=== PATIENT | male | born 1965 | race Caucasian/White ===

== ENCOUNTER 2019-12-31 10:58 | Outpatient (CLI) | payer MEDICARE, SELFPAY ==
[2019-12-31 11:36] LABS: Hemoglobin A1C 8.7 % (<5.7)
[2019-12-31 12:22] LABS: Alanine Aminotransferase 427 U/L (16-63); Albumin Level 4.1 g/dL (3.4-5.0); Alkaline Phosphatase 412 U/L (46-116); Anion Gap 16.7 mmol/L (7-16); Aspartate Amino Transferase 196 U/L (15-37); Blood Urea Nitrogen 16 mg/dL (7-18); CRP 0.4 mg/dL (0.0-0.9); Calcium 9.6 mg/dL (8.5-10.1); Carbon Dioxide 26 mmol/L (21-32); Chloride 99 mmol/L (98-108); Cholesterol 207 mg/dL (0-200); Estimated Glomerular Filt Rate > 60; Glucose 227 mg/dL (70-99); HDL Direct 53 mg/dL (40-60); LDL Cholesterol Calculated 99 mg/dL (<130); Osmolality Calculated 292 mOsm/kg (285-295); Potassium 4.7 mmol/L (3.5-5.1); Prostate Specific Antigen 0.7 ng/mL (< OR = 4.0); Sodium 137 mmol/L (136-145); Total Protein 7.8 g/dL (6.4-8.2); Triglycerides 275 mg/dL (0-150)
== END 2019-12-31 10:59 | disposition home or self-care (01) ==
LOC: CHSLAB 11:01
PROVIDERS: PCP Internal Medicine; Visit Provider Internal Medicine
DX: E78.5 Hyperlipidemia, unspecified (principal); E11.9 Type 2 diabetes mellitus without complications; R51 Headache; Z12.5 Encounter for screening for malignant neoplasm of prostate; Z00.00 Encounter for general adult medical examination without abnormal findings
CPT/HCPCS: 36415; 80053; 80061; 83036; 84153; 86140; G0103

== ENCOUNTER 2020-01-02 07:43 | Outpatient (CLI) | payer MEDICARE, SELFPAY ==
--- NOTE | ~2020-01-02 | US_ITS ---
EXAMINATION: US right upper quadrant DATE: 01/02/2020 08:35 INDICATION: Elevated liver enzymes. TECHNIQUE: Multiple grayscale and Doppler ultrasound images of the abdomen were obtained. COMPARISON: Ultrasound dated 01/24/[address] dated 01/23/2019 FINDINGS: The pancreatic head and body are normal in appearance. The pancreatic tail is not visualized. The vi sualized proximal inferior vena cava is normal. Liver has normal contour, with a smooth surface. Ther e is increased parenchymal echogenicity and coarsened echotexture consistent with hepatic steatosis w ith similar pattern of geographic wedge-shaped regions of focal sparing most prominent in the posteri or right hepatic lobe as also seen on prior CT. No liver lesion identified. No intrahepatic biliary duct dilation suspected. Portal venous flow was seen in the hepatopetal, normal direction and has nor mal Doppler waveform. Gallbladder is no longer visualized consistent with reported interval cholecys tectomy. Common bile duct measures 4-5 mm in diameter which is normal. Visual is portions of the righ t kidney demonstrates normal echogenicity and contour with no hydronephrosis. IMPRESSION: 1. Heterogeneous pattern of hepatic steatosis as also seen on prior CT. 2. Status post cholecystectomy. No intra or extrahepatic biliary ductal dilation. Reviewed, dictated and finalized at location A. NER OPERATOR IMPRESSION: 1. Heterogeneous pattern of hepatic steatosis as also seen on prior CT. 2. Status post cholecystectomy. No intra or extrahepatic biliary ductal dilatio n.
[2020-01-02 08:56] LABS: Ferritin 441 ng/mL (26-388)
[2020-01-08 13:42] LABS: Ceruloplasmin 38 mg/dL (18-36)
== END 2020-01-02 07:44 | disposition home or self-care (01) ==
LOC: CHSIMG 07:44
PROVIDERS: PCP Internal Medicine; Visit Provider Internal Medicine
DX: R74.8 Abnormal levels of other serum enzymes (principal); E83.01 Wilson's disease
CPT/HCPCS: 36415; 76705; 82390; 82525; 82728; 83516; 86038; 86255; 86376

== ENCOUNTER 2020-04-06 01:41 | Emergency (ER) | payer MEDICARE, SELFPAY ==
--- NOTE | 2020-04-06 01:48 | ED.ABDPAIN ---
HPI - Abdominal Pain General Chief Complaint: Abdominal Pain Stated Complaint: Abdominal Pain Time Seen by Provider: 04/06/20 01:48 Source: patient Mode of arrival: ambulatory Limitations: no limitations Related Data Home Medications Medication Instructions Recorded Confirmed metformin 1,000 mg PO BID 11/16/19 04/06/20 metoprolol succinate 50 mg PO DAILY 11/16/19 04/06/20 Allergies Allergy/AdvReac Type Severity Reaction Status Date / Time No Known Allergies Allergy Unverified 01/25/19 13:54 [facility] Past Medical History Medical History Avascular necrosis of bone of hip Chronic low back pain DM type 2 with diabetic peripheral neuropathy DMII (diabetes mellitus, type 2) HLD (hyperlipidemia) HTN (hypertension) Surgical History Surgical History H/O hernia repair History of cholecystectomy Family History Family History (Updated 04/10/18 @ 10:20 by DOCTOR UNKNOWN) Other Diabetes mellitus Family history of arthritis Social History Social History Smoking status: Current every day smoker Alcohol intake: never Exam Const: General: alert Orientation/consciousness: patient oriented x3 Limitations: no limitations Other: Mild-mod acute distress HENMT: Head: normal to inspection Ears: external ears normal, TM's normal bilaterally and EAC's normal Mouth: Yes Normal oral and palatal mucosa present and Yes moist mucous membranes Throat: posterior oropharynx normal Eyes: Conjunctivae: conjunctivae normal Pupils: Equal, round and reactive pupils present EOM: EOMs intact bilaterally Resp: Effort & Inspection: normal respiratory effort and not labored Auscultation: clear to auscultation bilaterally, no rales, no rhonchi and no wheezes Cardio: Rate: regular rate Rhythm: regular rhythm Heart sounds: no murmurs GI: Inspection: non-distended GI Palp: Yes Soft to palpation, Yes Tenderness to palpation present (GI) (epigastric tenderness without guarding or rebound), No Rigid due to palpation and No Palpable mass present Skin: General skin exam: normal color, no jaundice and no pallor Rashes: no rashes Neuro: General: patient oriented x3, moves all extremities, no focal motor deficits and CN's II-XI intact bilaterally Speech: normal speech Extrem: General: normal to inspection and no clubbing, cyanosis or edema Psych: Appearance: grossly normal and well kempt Mental Status: mental status grossly normal Affect: normal affect Attitude: cooperative Thought content: Yes Normal thought content present Discharge Plan Discharge Clinical Impression: Abdominal pain, epigastric, Biliary obstruction Patient Disposition: Home, Self-Care Condition: Stable Instructions: Biliary Colic (ED), Abdominal Pain (ED) Additional Instructions: Follow-up with Dr. Perez in the next day or 2. If you have fever, vomiting, jaundice, or new concerning symptoms, be seen immediately. Prescriptions: New hydrocodone-acetaminophen [[place]] 5-325 mg tablet 1 tablet PO Q6H PRN (Reason: pain) Qty: 12 RF: 0 ondansetron 4 mg tablet,disintegrating 4 mg PO Q6H PRN (Reason: nausea and vomiting) Qty: 10 RF: 0 No Action metformin 500 mg tablet 1,000 mg PO BID RF: 0 metoprolol succinate 50 mg tablet extended release 24 hr 50 mg PO DAILY RF: 0 Follow-up/Referrals: Hira Perez MD [Primary Care Provider] - Time of Disposition: 04:31
[2020-04-06 01:53] VITALS: BP 168/96; PULSE 85; RESP 18; TEMP 36.1; O2SAT 99
[2020-04-06 02:13] LABS: Basophils Absolute Auto 0.01 K/mm3 (0.00-0.10); Basophils Percent Auto 0.1 % (0.0-1.0); Eosinophils Absolute Auto 0.12 K/mm3 (0.02-0.50); Eosinophils Percent Auto 1.5 % (1.0-6.0); Hematocrit 45.1 % (40.0-54.0); Immature Granulocyte Absolute 0.03 K/mm3 (0.00-0.00); Immature Granulocyte Percent A 0.4 % (0.0-0.0); Mean Corpuscular HGB Conc 33.3 g/dL (32.0-36.0); Mean Corpuscular Hemoglobin 29.8 pg (27.0-31.0); Mean Corpuscular Volume 89.5 fL (78.0-102.0); Mean Platelet Volume 10.3 fl (8.7-11.0); Monocytes Absolute Auto 0.66 K/mm3 (0.10-0.90); Monocytes Percent Auto 8.2 % (2.0-11.0); Neutrophils Absolute Auto 5.2 K/mm3 (1.7-7.2); Neutrophils Percent Auto 63.8 % (50.0-70.0); Platelet Count Result 290 K/mm3 (150-420); Red Blood Count 5.04 M/mm3 (4.70-6.10); Red Cell Distribution Width 13.2 % (11.6-14.4); White Blood Count 8.1 K/mm3 (4.8-10.8)
[2020-04-06] MEDS: ONDANSETRON INJ 4 MG/2 ML VIAL IV PUSH (02:27)
[2020-04-06] MEDS: HYDROMORPHONE HCL 2 MG/ML VIAL 0.5 MG IV PUSH (02:27)
[2020-04-06] MEDS: SODIUM CHLORIDE 0.9% IV 1,000 ML 999 ML IV CONT (02:28)
[2020-04-06 02:29] LABS: Alanine Aminotransferase 266 U/L (16-63); Albumin Level 3.1 g/dL (3.4-5.0); Alkaline Phosphatase 535 U/L (46-116); Anion Gap 17.3 mmol/L (7-16); Aspartate Amino Transferase 181 U/L (15-37); Blood Urea Nitrogen 11 mg/dL (7-18); Calcium 9.7 mg/dL (8.5-10.1); Carbon Dioxide 24 mmol/L (21-32); Chloride 100 mmol/L (98-108); Estimated CRCL calculation 79 ml/min; Estimated Glomerular Filt Rate > 60; Glucose 183 mg/dL (70-99); Lipase 200 U/L (73-393); Osmolality Calculated 290 mOsm/kg (285-295); Partial Thromboplastin Time 27.3 SEC (22.3-31.6); Potassium 3.3 mmol/L (3.5-5.1); Sodium 138 mmol/L (136-145); Total Protein 7.7 g/dL (6.4-8.2)
[2020-04-06 02:31] LABS: Lactic Acid Reflex 1.9 mmol/L (0.4-2.0)
[2020-04-06 02:44] LABS: GGT > 690.0 U/L (15-85)
[2020-04-06 03:07] LABS: Add Urine Microscopic? YES; Appearance Urine Clear (Clear); Bilirubin Urine Negative (Negative); Blood Urine Negative (Negative); Color Urine Yellow (Yellow); Glucose Urine UA 2+ (Negative); Ketones Urine Negative (Negative); Leukocyte Esterase Ur Negative LEU/UL (Negative); Nitrate Urine Negative (Negative); Protein Urine Negative (Negative); Specific Grav Ur <= 1.005 (1.010-1.020)
[2020-04-06 03:13] LABS: RBC Urine None seen /hpf (0-2); Squamous Epithelial Cell Urine None seen /hpf (Few); WBC Urine None seen /hpf (0-3)
[2020-04-06 03:14] LABS: Bacteria Urine None seen /hpf; Mucus Urine None seen /lpf
[2020-04-06] MEDS: POTASSIUM CHLORIDE 20 MEQ PACKET (FOR LIQUID) 40 MEQ PO (04:19)
[2020-04-06 04:46] VITALS: BP 158/90; PULSE 85; RESP 18; TEMP 36.4; O2SAT 100
== END 2020-04-06 04:49 | disposition home or self-care (01) ==
PROVIDERS: Emergency Provider Emergency Medicine; PCP Internal Medicine
DX: R10.13 Epigastric pain (principal); K83.1 Obstruction of bile duct; E11.42 Type 2 diabetes mellitus with diabetic polyneuropathy; E78.5 Hyperlipidemia, unspecified; I10 Essential (primary) hypertension; F17.200 Nicotine dependence, unspecified, uncomplicated
CPT/HCPCS: 36415; 80053; 81001; 82977; 83605; 83690; 85025; 85610; 85730; 96361; 96374; 96375; 99283; 99284; A9270; J1170; J2405; J7030

== ENCOUNTER 2020-04-14 12:00 | Outpatient (CLI) | payer MEDICARE, SELFPAY ==
[2020-04-14 12:10] LABS: Basophils Absolute Auto 0.04 K/mm3 (0.00-0.10); Basophils Percent Auto 0.5 % (0.0-1.0); Eosinophils Absolute Auto 0.14 K/mm3 (0.02-0.50); Eosinophils Percent Auto 1.7 % (1.0-6.0); Hematocrit 47.9 % (40.0-54.0); Immature Granulocyte Absolute 0.03 K/mm3 (0.00-0.00); Immature Granulocyte Percent A 0.4 % (0.0-0.0); Lymphocytes Absolute Auto 2.75 K/mm3 (1.10-4.50); Lymphocytes Percent Auto 34.2 % (18.0-42.0); Mean Corpuscular HGB Conc 33.4 g/dL (32.0-36.0); Mean Corpuscular Volume 89.9 fL (78.0-102.0); Mean Platelet Volume 10.2 fl (8.7-11.0); Monocytes Absolute Auto 0.49 K/mm3 (0.10-0.90); Monocytes Percent Auto 6.1 % (2.0-11.0); Neutrophils Absolute Auto 4.6 K/mm3 (1.7-7.2); Neutrophils Percent Auto 57.1 % (50.0-70.0); Platelet Count Result 335 K/mm3 (150-420); Red Blood Count 5.33 M/mm3 (4.70-6.10); Red Cell Distribution Width 12.7 % (11.6-14.4); White Blood Count 8.1 K/mm3 (4.8-10.8)
[2020-04-14 13:19] LABS: Alanine Aminotransferase 97 U/L (16-63); Albumin Level 3.8 g/dL (3.4-5.0); Alkaline Phosphatase 334 U/L (46-116); Amylase 46 U/L (25-115); Anion Gap 15.1 mmol/L (7-16); Aspartate Amino Transferase 31 U/L (15-37); Bilirubin,Total 0.4 mg/dL (0.00-1.00); Blood Urea Nitrogen 13 mg/dL (7-18); Calcium 9.9 mg/dL (8.5-10.1); Carbon Dioxide 27 mmol/L (21-32); Chloride 96 mmol/L (98-108); Estimated Glomerular Filt Rate > 60; Glucose 256 mg/dL (70-99); Lipase 233 U/L (73-393); Osmolality Calculated 287 mOsm/kg (285-295); Potassium 4.1 mmol/L (3.5-5.1); Sodium 134 mmol/L (136-145); Total Protein 7.9 g/dL (6.4-8.2)
[2020-04-19 05:17] LABS: CA 19-9 58 U/mL (<34)
== END 2020-04-14 12:01 | disposition home or self-care (01) ==
LOC: CHSLAB 12:02
PROVIDERS: PCP Internal Medicine; Visit Provider Internal Medicine
DX: R10.9 Unspecified abdominal pain (principal); C24.1 Malignant neoplasm of ampulla of Vater
CPT/HCPCS: 36415; 80053; 82150; 83690; 85025; 86301

== ENCOUNTER 2020-04-17 10:41 | Outpatient (CLI) | payer MEDICARE, SELFPAY ==
--- NOTE | 2020-04-17 11:00 | ECG_ITS ---
Measurements Intervals Jean Rate: 82 P: 73 SC: 138 QRS: 40 QRSD: 90 T: 58 QT: 367 QTc: 431 Interpretive Statements SINUS RHYTHM NONSPECIFIC T-WAVE ABNORMALITY- ANTERIOR LEADS BORDERLINE ECG Electronically Signed On 04-17-2020 13:35:12 CDT by Johnathan Culver D.O.
== END 2020-04-17 10:42 | disposition home or self-care (01) ==
LOC: CHSCARD 10:45
PROVIDERS: PCP Internal Medicine
DX: C24.1 Malignant neoplasm of ampulla of Vater (principal); E78.5 Hyperlipidemia, unspecified; I10 Essential (primary) hypertension
CPT/HCPCS: 93005

== ENCOUNTER 2020-05-27 20:42 | Emergency (ER) | payer MEDICARE, SELFPAY ==
--- NOTE | ~2020-05-27 | CT_ITS ---
EXAMINATION: CT abdomen pelvis w con DATE: 05/27/2020 22:34 INDICATION: Elevated with blood cell count. Status post Whipple procedure. TECHNIQUE: Computed tomography (CT) of the abdomen and pelvis was performed with 100 cc Omnipaque 350 intravenous contrast. The dose-length product was 213.88 mGy-cm. Automated exposure control and iter ative reconstruction technique were employed. COMPARISON: CT dated 01/23/2019. FINDINGS: Lung bases are unremarkable. Heart size normal. No significant pleural or pericardial effus ion. Fatty infiltration of the liver. There are surgical changes of previous Whipple procedure. There are multiple loculated fluid collections along the lesser curvature of the stomach, near the pancreatic h ead and the anterior pararenal space on the right, suspicious for abscess versus pseudocyst formation . No evidence for bowel obstruction. There is stranding surrounding the pancreatic body, suspicious f or pancreatitis. The spleen, adrenal glands and kidneys are unremarkable. No acute osseous abnormality. Levoscoliosis of the lumbar spine. No significant vascular abnormality. No lymphadenopathy. No free air. No abnorma l pelvic masses or fluid collections. IMPRESSION: 1. Abnormal stranding surrounding the pancreatic body, suspicious for acute pancreatitis. There are s urgical changes consistent with Whipple procedure. 2: Multiple loculated fluid collections of the upper abdomen involving the lesser curvature of the s tomach near the pancreatic head and anterior pararenal space on the right, suspicious for abscess bailey nan pseudocyst formation. Reviewed, dictated and finalized at location A. IMPRESSION: 1. Abnormal stranding surrounding the pancreatic body, suspicious for acute hodge creatitis. There are surgical changes consistent with Whipple procedure. 2: Multiple loculated fluid collections of the upper abdomen involving the les ser curvature of the stomach near the pancreatic head and anterior pararenal sp agueda on the right, suspicious for abscess versus pseudocyst formation.
[2020-05-27 20:45] VITALS: BP 120/77; PULSE 116; RESP 16; TEMP 37.3; O2SAT 98
--- NOTE | 2020-05-27 20:57 | ED.GENADULT ---
HPI - General Adult General Chief complaint: Abdominal Pain Stated complaint: weak, dehydrated, stomach cramps,chills Time Seen by Provider: 05/27/20 20:57 History of Present Illness HPI narrative: 54-year-old male patient is here with chief complaints of feeling weak and having stomach cramps. 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 The surgery was done on 11 of May. The patient has been recovering reasonably well. He did have an appointment with oncologist and surgeon yesterday for further treatment with chemo and port placement. The patient states that he has not been very hungry and has not had much to eat. He denies any nausea or vomiting. He states that the cramps are intermittent and localized to the belly area. He has not had a bowel movement today but has been able to pass gas. He does not complain of feeling bloated. He is not complaining of any fever or chills. He denies any shortness of breath. Related Data Home Medications Medication Instructions Recorded Confirmed metformin 1,000 mg PO BID 11/16/19 05/27/20 metoprolol succinate 50 mg PO DAILY 11/16/19 05/27/20 docusate sodium 100 mg PO BID 05/27/20 05/27/20 lisinopril 20 mg PO DAILY 05/27/20 05/27/20 oxycodone 5 mg PO Q4-5H 05/27/20 05/27/20 Allergies Allergy/AdvReac Type Severity Reaction Status Date / Time No Known Allergies Allergy Verified 05/27/20 21:00 Review of Systems Review of Systems: All systems reviewed & are unremarkable except as noted in HPI and below Constitutional: Constitutional: Reports no additional constitutional complaints Eyes: Eyes: Reports no additional eye complaints ENT: Reports system reviewed and no additional complaints, except as documented Respiratory: Respiratory: Reports no additional respiratory complaints, Denies cough, Denies dyspnea and Denies wheezing Gastrointestinal: Gastrointestinal: Reports abdominal pain, Reports constipation, Denies diarrhea, Denies nausea and Denies vomiting Musculoskeletal: Musculoskeletal: Reports no additional musculoskeletal complaints Comments: Patient states that the abdominal discomfort is mostly like cramping but he does not have a persistent ache except from the surgical scar. Integumentary/Breasts: Skin/Breast: Reports system reviewed and no additional complaints, except as docu, Denies pruritus, Denies erythema and Denies rash Neurologic: Reports system reviewed and no additional complaints, except as documented Psychiatric: Psychiatric: Reports no additional psychiatric complaints Endocrine: Endocrine: Reports no additional endocrine complaints Hematologic/Lymphatic: Hematologic/Lymphatic: Reports no additional hematologic/lymphatic complaints PMFSH Past Medical History Medical History (Updated 05/27/20 @ 23:51 by Sanjuanita Chua MD) Avascular necrosis of bone of hip Cancer of ampulla of Vater Chronic low back pain DM type 2 with diabetic peripheral neuropathy DMII (diabetes mellitus, type 2) HLD (hyperlipidemia) HTN (hypertension) Surgical History Surgical History H/O hernia repair History of cholecystectomy Family History Family History Other Diabetes mellitus Family history of arthritis Social History Social History Smoking status: Current every day smoker Alcohol intake: never Exam Const: General: no acute distress, alert and ill appearing Nutritional Appearance: thin Orientation/consciousness: patient oriented x3 HENMT: Head: normal to inspection Mouth: Yes moist mucous membranes and Yes Abnormal oral and palatal mucosa present Eyes: Conjunctivae: conjunctivae normal Pupils: Equal, round and reactive pupils present EOM: EOMs intact bilaterally Neck: Neck: normal visual inspection Chest: Chest palpation & inspection: normal inspec
[2020-05-27 21:18] LABS: Basophils Absolute Auto 0.04 K/mm3 (0.00-0.10); Basophils Percent Auto 0.2 % (0.0-1.0); Eosinophils Absolute Auto 0.08 K/mm3 (0.02-0.50); Eosinophils Percent Auto 0.5 % (1.0-6.0); Hematocrit 40.5 % (40.0-54.0); Hemoglobin 13.6 g/dL (14.0-18.0); Immature Granulocyte Absolute 0.11 K/mm3 (0.00-0.00); Immature Granulocyte Percent A 0.6 % (0.0-0.0); Lymphocytes Absolute Auto 2.69 K/mm3 (1.10-4.50); Lymphocytes Percent Auto 15.8 % (18.0-42.0); Mean Corpuscular HGB Conc 33.6 g/dL (32.0-36.0); Mean Corpuscular Volume 86.4 fL (78.0-102.0); Mean Platelet Volume 9.5 fl (8.7-11.0); Monocytes Absolute Auto 1.42 K/mm3 (0.10-0.90); Monocytes Percent Auto 8.4 % (2.0-11.0); Neutrophils Absolute Auto 12.6 K/mm3 (1.7-7.2); Neutrophils Percent Auto 74.5 % (50.0-70.0); Nucleated Red Blood Cells Absolute Auto 0.02 K/mm3 (0.00-0.00); Nucleated Red Blood Cells Perc 0.1 % (0-0.0); Platelet Count Result 568 K/mm3 (150-420); Red Blood Count 4.69 M/mm3 (4.70-6.10); Red Cell Distribution Width 12.1 % (11.6-14.4)
[2020-05-27] MEDS: SODIUM CHLORIDE 0.9% IV 1,000 ML 999 ML IV CONT ×2 (21:28→22:52)
[2020-05-27 21:33] LABS: Alanine Aminotransferase 32 U/L (16-63); Albumin Level 2.9 g/dL (3.4-5.0); Alkaline Phosphatase 168 U/L (46-116); Anion Gap 12.2 mmol/L (7-16); Aspartate Amino Transferase 24 U/L (15-37); Bilirubin,Total 0.5 mg/dL (0.00-1.00); Blood Urea Nitrogen 14 mg/dL (7-18); Calcium 9.5 mg/dL (8.5-10.1); Carbon Dioxide 28 mmol/L (21-32); Chloride 94 mmol/L (98-108); Estimated Glomerular Filt Rate > 60; Glucose 171 mg/dL (70-99); Osmolality Calculated 274 mOsm/kg (285-295); Potassium 4.2 mmol/L (3.5-5.1); Sodium 130 mmol/L (136-145); Total Protein 7.5 g/dL (6.4-8.2)
[2020-05-27 21:39] LABS: Amylase 18 U/L (25-115); Lipase 54 U/L (73-393)
[2020-05-27] MEDS: MORPHINE SULFATE 2 MG/ML INJ IV PUSH ×3 (21:49→23:13)
[2020-05-27 22:08] LABS: Magnesium 1.7 mg/dL (1.8-2.4)
[2020-05-27] MEDS: ONDANSETRON INJ 4 MG/2 ML VIAL IV PUSH (22:52)
--- NOTE | 2020-05-27 23:16 | PC.NURSE ---
JAKE CEBALLOS PUT A PAGE OUT TO SURGEON DR. MENJIVAR OUT OF [facility] IN [place], [place] THROUGH [employer] TRANSF[facility] FOR A SURGICAL PATIENT OF HIS WHO IS PRESENTING WITH AN ABNORMAL CT SCAN OF THE ABDOMEN AND PAIN AFTER A WHIPPLE PROCEDURE PERFORMED LAST WEEK. DR. MENJIVAR IS TO CALL ED DR HOWARD BACK AT [facility] SOON POSSIBLE.
--- NOTE | 2020-05-27 23:34 | PC.NURSE ---
Report received, pt. resting. VSS, call abck from Dr. Troncoso, surgeon at [facility], speaking c ERP Dr. Nieves.
[2020-05-27] MEDS: HYDROmorphone HCL 2 MG/ML VIAL IV PUSH (23:50)
[2020-05-27] MEDS: MAGNESIUM SULF 2 GM/WATER 50ML 2 GM/50 ML BAG IVPB (23:53)
[2020-05-28 00:45] VITALS: BP 120/71; PULSE 78; RESP 18; TEMP 36.4; O2SAT 98
== END 2020-05-28 00:51 | disposition home or self-care (01) ==
PROVIDERS: Emergency Provider Emergency Medicine; PCP Internal Medicine
DX: R10.9 Unspecified abdominal pain (principal); E83.42 Hypomagnesemia; E86.0 Dehydration; E11.9 Type 2 diabetes mellitus without complications; E78.5 Hyperlipidemia, unspecified; I10 Essential (primary) hypertension; F17.200 Nicotine dependence, unspecified, uncomplicated
CPT/HCPCS: 36415; 74177; 80053; 82150; 83690; 83735; 85025; 96361; 96365; 96375; 96376; 99283; 99284; J1170; J2270; J2405; J3475; J7030; Q9965

== ENCOUNTER 2020-06-11 07:37 | Emergency (ER) | payer MEDICARE, SELFPAY ==
--- NOTE | ~2020-06-11 | XR_ITS ---
EXAMINATION: XR abdomen obstructive series DATE: 06/11/2020 08:20 INDICATION: Generalized abdominal pain. Nausea. Constipation. TECHNIQUE: Upright and supine views of the abdomen on 3 radiographs were obtained. COMPARISON: CT abdomen and pelvis 05/27/2020 FINDINGS: There are no dilated loops of bowel. There is a large volume of stool in the colon. No free intraperitoneal gas. Surgical clips in the right upper quadrant are likely from cholecystectomy. The re are phleboliths in the pelvis. IMPRESSION: 1. Nonobstructive bowel gas pattern. Reviewed, dictated and finalized at location B.
[2020-06-11 07:50] VITALS: BP 145/88; PULSE 123; RESP 20; TEMP 37.2; O2SAT 98
[2020-06-11] MEDS: KETOROLAC (*BKC) 60 MG/2 ML VIAL IM (08:09)
--- NOTE | 2020-06-11 08:27 | PC.NURSE ---
pt to room 203 for enema per wheelchair with this senior copywriter
--- NOTE | 2020-06-11 08:32 | ED.ABDPAIN ---
HPI - Abdominal Pain General Chief Complaint: Abdominal Pain Stated Complaint: PAIN NO BOWEL MOVEMENTS Source: patient Mode of arrival: ambulatory Limitations: no limitations History of Present Illness HPI narrative: This is a 55-year-old male with a history of pancreatic mass recent Whipple's procedure and has been having constipation and crampy abdominal pain over the last week. Last bowel movement approximately 1 week ago is currently on narcotics to relieve his pain and on Mylanta and does his state for a constipation with currently no help. Patient has crampy abdominal pain diffuse with some no nausea vomiting no fever chills no shortness of breath no chest pain. MD elicited complaint: abdominal pain Pertinent past history: constipation Onset (ago): week(s) Pain Consistency: constant Location: diffuse Severity: moderate Quality: cramping Radiation: none Exacerbating factors: medication Relieving factors: nothing Related Data Home Medications Medication Instructions Recorded Confirmed metformin 1,000 mg PO BID 11/16/19 05/27/20 metoprolol succinate 50 mg PO DAILY 11/16/19 05/27/20 docusate sodium 100 mg PO BID 05/27/20 05/27/20 lisinopril 20 mg PO DAILY 05/27/20 05/27/20 oxycodone 5 mg PO Q4-5H 05/27/20 05/27/20 Allergies Allergy/AdvReac Type Severity Reaction Status Date / Time No Known Allergies Allergy Verified 05/27/20 21:00 Review of Systems Review of Systems: All systems reviewed & are unremarkable except as noted in HPI and below PMFSH Past Medical History Medical History Avascular necrosis of bone of hip Cancer of ampulla of Vater Chronic low back pain DM type 2 with diabetic peripheral neuropathy DMII (diabetes mellitus, type 2) HLD (hyperlipidemia) HTN (hypertension) Surgical History Surgical History H/O hernia repair History of cholecystectomy Family History Family History Other Diabetes mellitus Family history of arthritis Social History Social History Smoking status: Current every day smoker Alcohol intake: never Exam Const: General: no acute distress HENMT: Head: normal to inspection Eyes: Conjunctivae: conjunctivae normal Pupils: Equal, round and reactive pupils present EOM: EOMs intact bilaterally Neck: Neck: normal visual inspection, no lymphadenopathy and no meningeal signs Chest: Chest palpation & inspection: normal inspection of the chest and abnormal inspection of the chest Resp: Effort & Inspection: normal respiratory effort Auscultation: clear to auscultation bilaterally Cardio: Rate: regular rate Rhythm: regular rhythm GI: GI Palp: Yes Soft to palpation and Yes Tenderness to palpation present (GI) Auscultation: normal bowel sounds : Testes: Testes normal Skin: General skin exam: normal color Rashes: no rashes Neuro: General: patient oriented x3, moves all extremities, no meningeal signs and no focal motor deficits Extrem: General: normal to inspection and no pedal edema Psych: Mental Status: mental status grossly normal Affect: normal affect Thought content: Yes Normal thought content present Course Course Emergency Course: Patient had obstructive series which shows no obstruction, patient received IM Toradol with some moderate relief of his abdominal pain, patient was also administered soapsuds enema with some relief of his discomfort with constipation. Vital Signs Vital signs: Vital Signs Temperature 37.2 C 06/11/20 07:50 Pulse Rate 123 H 06/11/20 07:50 Respiratory Rate 20 06/11/20 07:50 Blood Pressure 145/88 H 06/11/20 07:50 Pulse Oximetry 98 06/11/20 07:50 Temperature 37.2 C 06/11/20 07:50 Pulse Rate 123 H 06/11/20 07:50 Respiratory Rate 20 06/11/20 07:50 Blood Pressure 145/8
== END 2020-06-11 09:07 | disposition home or self-care (01) ==
PROVIDERS: Emergency Provider Emergency Medicine; PCP Internal Medicine
DX: K59.00 Constipation, unspecified (principal)
CPT/HCPCS: 74019; 96372; 99283; J1885

== ENCOUNTER 2020-07-18 07:24 | Outpatient (CLI) | payer MEDICARE, SELFPAY ==
--- NOTE | ~2020-07-18 | MR_ITS ---
EXAMINATION: MR lumbar spine wo/w con DATE: 07/18/2020 08:48 INDICATION: Low back pain. TECHNIQUE: Magnetic resonance imaging (MRI) of the lumbar spine was performed without and with 10 mL MultiHance intravenous contrast. Sequences included sagittal T2-weighted FSE, sagittal T2-weighted FS FSE, and sagittal and axial T1-weighted FSE. Postcontrast sequences included axial T2-weighted FSE a nd axial and sagittal T1-weighted FS FSE. COMPARISON: None FINDINGS: There is 11 degrees levoscoliosis of lumbar spine. L5 is a transitional segment. Vertebral body heights are normal. There is mildly decreased disc height at L4-L5. The distal spinal cord signa l intensity is normal. The conus medullaris is at T12. The following disc levels are specifically dis cussed: L1-L2: The disc does not extend beyond the endplate margin. There is mild bilateral facet joint osteo arthritis. There is no neural foraminal stenosis. There is no central canal stenosis. L2-L3: The disc does not extend beyond the endplate margin. There is mild bilateral facet joint osteo arthritis. There is no neural foraminal stenosis. There is no central canal stenosis. L3-L4: There is a right foraminal protrusion. There is mild bilateral facet joint osteoarthritis. The re is mild right neural foraminal stenosis. There is no central canal stenosis. L4-L5: The disc is bulging and has an annular fissure. There is mild bilateral facet joint osteoarthr itis. There is mild bilateral neural foraminal stenosis. There is mild central canal stenosis. L5-S1: The disc does not extend beyond the endplate margin. There is mild bilateral facet joint osteo arthritis. There is no neural foraminal stenosis. There is no central canal stenosis. IMPRESSION: 1. Mild lumbar spondylosis. 2. Lumbar levoscoliosis. Reviewed, dictated and finalized at location A.
[2020-07-18 07:50] LABS: Estimated Glomerular Filt Rate > 60
== END 2020-07-18 07:25 | disposition home or self-care (01) ==
LOC: CHSIMG 07:26
PROVIDERS: PCP Internal Medicine; Visit Provider Internal Medicine
DX: M54.9 Dorsalgia, unspecified (principal); M54.16 Radiculopathy, lumbar region; C25.9 Malignant neoplasm of pancreas, unspecified
CPT/HCPCS: 72158; A9577

== ENCOUNTER 2020-07-31 10:03 | Emergency (ER) | payer MEDICARE, SELFPAY ==
--- NOTE | ~2020-07-31 | CT_ITS ---
EXAMINATION: CT abdomen pelvis w con DATE: 07/31/2020 11:54 INDICATION: Epigastric abdominal pain, very sharp upper abdominal pain. Loose stools for 3 days. TECHNIQUE: Computed tomography (CT) of the abdomen and pelvis was performed with 100 cc Omnipaque 350 intravenous contrast. Automated exposure control and iterative reconstruction technique were employe d. Exam dose: 235.14 mGy-cm total exam DLP. COMPARISON: right upper quadrant abdominal ultrasound 05/27/2020 CT abdomen pelvis FINDINGS: The lung bases are clear of infiltrate or consolidation. Normal heart size. No pericardial or pleural effusion. Diffuse hepatic steatosis. No hepatic space-occupying mass lesion is evident. Status post cholecystectomy. No bile duct or pancreatic duct dilatation is evident. Normal splenic si ze. Status post Whipple procedure by clinical history. No pancreatic mass lesion or abnormal pancreatic o r peripancreatic fluid collection or pancreatic calcification is noted. No adrenal mass lesion is detected. No renal mass lesion or urinary tract calculus or hydroureteronephrosis. There is moderate diffuse th ickening of the urinary bladder wall. There is prostate enlargement and mild calcification. There is a small amount of free fluid in the dependent pelvis. There is atherosclerotic calcification of the abdominal aorta and iliac arteries but no abdominal aor tic aneurysm. No intraperitoneal or retroperitoneal or pelvic mass lesion or adenopathy or ascites is evident. No evidence of appendicitis. No bowel obstruction or intraperitoneal free air. Included skeletal structures are unremarkable. No suspicious osteolytic or osteoblastic lesions. IMPRESSION: Status post Whipple procedure Status post cholecystectomy Diffuse hepatic steatosis Prostate enlargement Reviewed, dictated and finalized at Location A. Reviewed, dictated and finalized at location B.
--- NOTE | 2020-07-31 10:26 | ED.ABDPAIN ---
HPI - Abdominal Pain General Chief Complaint: Abdominal Pain Stated Complaint: Sharp Stabbing pain in abd Time Seen by Provider: 07/31/20 10:26 Source: patient Mode of arrival: ambulatory Limitations: no limitations History of Present Illness HPI narrative: 55-year-old man status post Whipple for ampulla of Vater neoplasm comes in today complaining of 3 days of intermittent sharp abdominal pain. Patient states he has had no nausea, vomiting, diarrhea, fever or change in appetite. He denies problems with constipation. He last ate yesterday evening. He drank some coffee this morning. MD elicited complaint: abdominal pain Onset (ago): day(s) (3) Pain Consistency: intermittent Location: epigastric Quality: stabbing and sharp Radiation: none Migration to: no migration Exacerbating factors: movement Associated symptoms: denies other symptoms Related Data Home Medications Medication Instructions Recorded Confirmed metoprolol succinate 50 mg PO DAILY 11/16/19 07/31/20 lisinopril 20 mg PO DAILY 05/27/20 07/31/20 insulin NPH isoph U-100 human 20 unit SUBCUT DAILY 07/31/20 07/31/20 [Novolin N NPH U-100 Insulin] Allergies Allergy/AdvReac Type Severity Reaction Status Date / Time No Known Allergies Allergy Verified 05/27/20 21:00 Review of Systems Constitutional: Constitutional: Denies chills and Denies fever(s) Eyes: Eyes: Denies change in vision and Denies photophobia ENT: Denies dysphagia, Denies nasal congestion and Denies sore throat Cardiovascular: Cardiovascular: Denies chest pain and Denies radiating jaw, neck or arm pain Respiratory: Respiratory: Denies cough, Denies dyspnea and Denies wheezing Gastrointestinal: Gastrointestinal: Reports as per HPI, Reports abdominal pain, Denies diarrhea, Denies nausea and Denies vomiting Genitourinary: Genitourinary: Denies hematuria, Denies dysuria and Denies urinary frequency Musculoskeletal: Musculoskeletal: Denies arthralgias and Denies joint swelling Integumentary/Breasts: Skin/Breast: Denies pruritus, Denies erythema and Denies rash Neurologic: Denies vertigo, Denies dizziness and Denies syncope Hematologic/Lymphatic: Hematologic/Lymphatic: Denies easy bleeding and Denies easy bruising Allergic/Immunologic: Allergic/Immunologic: Denies lip swelling and Denies tongue swelling PMFSH Past Medical History Medical History Avascular necrosis of bone of hip Cancer of ampulla of Vater Chronic low back pain DM type 2 with diabetic peripheral neuropathy DMII (diabetes mellitus, type 2) HLD (hyperlipidemia) HTN (hypertension) Surgical History Surgical History (Updated 07/31/20 @ 10:29 by Tera Bird MD) H/O hernia repair History of cholecystectomy Intestinal bypass present Whipple procedure Social History Social History Smoking status: Current every day smoker Alcohol intake: never Exam Const: General: healthy appearing and alert Orientation/consciousness: patient oriented x3 Limitations: no limitations Other: moderate acute distress. HENMT: Head: normal to inspection Face and sinus: normal facial exam Mouth: Yes moist mucous membranes Throat: posterior oropharynx normal Eyes: Conjunctivae: conjunctivae normal Pupils: Equal, round and reactive pupils present EOM: EOMs intact bilaterally Resp: Effort & Inspection: normal respiratory effort and not labored Auscultation: clear to auscultation bilaterally, no rales, no rhonchi and no wheezes Cardio: Rate: regular rate Rhythm: regular rhythm Heart sounds: no murmurs GI: GI Palp: Yes Tenderness to palpation present (GI) ( Bilateral epigastrium. Voluntary guarding.), No Rigid due to palpation, No Hernia present and No Palpable mass present Skin: General skin exam: normal color, no jaundice and no pallor Rashes: no rashes Neuro: General: patient oriented x3, moves al
[2020-07-31 10:31] VITALS: BP 171/83; PULSE 92; RESP 18; TEMP 36.7; O2SAT 99
[2020-07-31 10:54] LABS: Basophils Absolute Auto 0.02 K/mm3 (0.00-0.10); Basophils Percent Auto 0.2 % (0.0-1.0); Eosinophils Percent Auto 1.1 % (1.0-6.0); Hemoglobin 14.4 g/dL (14.0-18.0); Immature Granulocyte Absolute 0.05 K/mm3 (0.00-0.00); Immature Granulocyte Percent A 0.5 % (0.0-0.0); Lymphocytes Percent Auto 24.3 % (18.0-42.0); Mean Corpuscular HGB Conc 31.3 g/dL (32.0-36.0); Mean Corpuscular Hemoglobin 26.8 pg (27.0-31.0); Mean Corpuscular Volume 85.5 fL (78.0-102.0); Mean Platelet Volume 10.1 fl (8.7-11.0); Monocytes Percent Auto 5.3 % (2.0-11.0); Neutrophils Absolute Auto 6.5 K/mm3 (1.7-7.2); Neutrophils Percent Auto 68.6 % (50.0-70.0); Platelet Count Result 283 K/mm3 (150-420); Red Blood Count 5.38 M/mm3 (4.70-6.10); Red Cell Distribution Width 15.9 % (11.6-14.4); White Blood Count 9.5 K/mm3 (4.8-10.8)
[2020-07-31 10:58] LABS: Add Urine Microscopic? NO; Appearance Urine Clear (Clear); Bilirubin Urine Negative (Negative); Blood Urine Negative (Negative); Color Urine Yellow (Yellow); Glucose Urine UA Negative (Negative); Ketones Urine Negative (Negative); Leukocyte Esterase Ur Negative LEU/UL (Negative); Nitrate Urine Negative (Negative); Protein Urine Negative (Negative); Specific Grav Ur <= 1.005 (1.010-1.020); Urobilinogen Urine 0.2 mg/dL (0.2-1.0)
[2020-07-31] MEDS: HYDROmorphone HCL INJ (*CRX) 2 MG/ML VIAL 0.5 MG IV PUSH (11:00)
[2020-07-31] MEDS: ONDANSETRON INJ 4 MG/2 ML VIAL IV PUSH (11:00)
[2020-07-31] MEDS: SODIUM CHLORIDE 0.9% IV 1,000 ML 999 ML IV CONT (11:00)
[2020-07-31 11:06] LABS: Partial Thromboplastin Time 25.2 SEC (22.3-31.6); Prothrombin Time 10.4 Seconds (9.64-11.0)
[2020-07-31 11:09] LABS: Alanine Aminotransferase 46 U/L (16-63); Albumin Level 3.5 g/dL (3.4-5.0); Alkaline Phosphatase 188 U/L (46-116); Anion Gap 9 mmol/L (8-16); Aspartate Amino Transferase 34 U/L (15-37); Bilirubin,Total 0.4 mg/dL (0.00-1.00); Blood Urea Nitrogen 17 mg/dL (7-18); Calcium 9.1 mg/dL (8.5-10.1); Carbon Dioxide 27 mmol/L (21-32); Chloride 104 mmol/L (98-108); Estimated CRCL calculation 73 ml/min; Estimated Glomerular Filt Rate > 60; Glucose 104 mg/dL (70-99); Lipase 49 U/L (73-393); Osmolality Calculated 291 mOsm/kg (285-295); Potassium 3.3 mmol/L (3.5-5.1); Sodium 140 mmol/L (136-145); Total Protein 7.8 g/dL (6.4-8.2)
[2020-07-31 11:12] LABS: Lactic Acid Reflex 2.1 mmol/L (0.4-2.0)
[2020-07-31 12:15] VITALS: BP 142/81; PULSE 90; RESP 18; O2SAT 98
[2020-07-31 13:50] LABS: Reflex Lactic Acid Yes or No Add Lactic
== END 2020-07-31 12:32 | disposition home or self-care (01) ==
PROVIDERS: Emergency Provider Emergency Medicine; PCP Internal Medicine
DX: R10.9 Unspecified abdominal pain (principal); E11.40 Type 2 diabetes mellitus with diabetic neuropathy, unspecified; E78.5 Hyperlipidemia, unspecified; I10 Essential (primary) hypertension; F17.200 Nicotine dependence, unspecified, uncomplicated
CPT/HCPCS: 36415; 74177; 80053; 81003; 83605; 83690; 85025; 85610; 85730; 96361; 96374; 96375; 99284; J1170; J2405; J7030; Q9965

== ENCOUNTER 2020-08-07 13:47 | Outpatient (RCR) | payer MEDICARE, SELFPAY ==
--- NOTE | 2020-08-07 14:39 | PTOPEVAL ---
Thank you for referring Juan Fitzpatrick to [facility] [place].? The patient is scheduled to be seen for therapy? __2__x/week for 12 visits. Please review, sign, date and return this plan of care FRANCES. I agree with and certify that the following plan of care is medically necessary. Referring Physician Date Admitting Provider: Attending Provider: Hira Perez MD Referring Provider: *PT Outpatient Evaluation Start: 08/07/20 13:54 Freq: Status: Active Protocol: Document 08/07/20 13:55 LAURE (Rec: 08/07/20 14:37 LAURE [id number]) Therapy Assessment Status Assessment Status Assessment Status Evaluation Outpatient Past Medical History Cardiovascular History Hx Hypercholesterolemia Yes Hx Hypertension Yes Respiratory History Hx Respiratory Disorders No Significant History Gastrointestinal History Hx Cholecystectomy Yes Hx Gall Bladder Disease Yes Hx Other Gastrointestinal Disorders Yes: WHIPPLE PROCEDURE FOR AMPULA CANCER Genitourinary History Hx Genitourinary Disorders No Significant History Musculoskeletal History Hx Musculoskeletal Disorders No Significant History Hematological History Hx Hematological Disorders No Significant History Endocrine History Hx Diabetes Yes HEENT History Hx HEENT Disorders No Significant History Integumentary History Hx Skin Disorders No Significant History Reproductive History Hx Reproductive Disorders No Significant History Psychosocial History Hx Psychiatric Disorders No Significant History Pain History History of Any Previous or Ongoing No Significant History Instance of Pain Anesthesia History Hx Anesthesia Reactions No Significant History Other History Hx Cancer Yes: AMPULA CANCER STAGE 3 PRESENTLY Evaluation Information Problem Diagnosis lumbar pain Onset 06/07/20 Subjective Information Pt. reports that he developed Query Text:As Reported By Patient/ numbness and stinging in the Family right thigh about 2 months ago . Pt. states that he underwent cancer surgery about 3 months ago. He states that he was inactive after surgery . Pt. states that he had MRI last month and states that he has moderately severe arthritis. Pt. reports that pain can wake him at night. He states that he can only stand for about 15-20 minutes
--- NOTE | 2020-10-07 13:51 | PCPTNOTE ---
Mr. Fitzpatrick attended a total of 2 treatment sessions. He has failed to return to the clinic or contact the clinic since his last session. Refer to the last daily note for pt. discharge status. He will be discharged from our care at this time. Aidan Rahman, MPT
== END 2020-08-13 14:39 | disposition home or self-care (01) ==
LOC: CHSPT 13:47
PROVIDERS: PCP Internal Medicine; Visit Provider Internal Medicine
DX: M54.5 Low back pain (principal)
CPT/HCPCS: 97014; 97110; 97161; G0283

== ENCOUNTER 2020-12-30 16:20 | Outpatient (CLI) | payer MEDICARE, SELFPAY ==
[2020-12-30] MEDS: SODIUM CHLORIDE 0.9% IV 1,000 ML 500 ML IV CONT (17:03)
[2020-12-30] MEDS: DICYCLOMINE HCL 10 MG CAPSULE PO (17:05)
--- NOTE | 2021-01-07 09:25 | PC.NURSE ---
IM medication was not available. Order recieved for po med to be given
== END 2020-12-30 16:21 | disposition home or self-care (01) ==
PROVIDERS: PCP Family Medicine; Visit Provider Family Medicine
DX: E86.0 Dehydration (principal); R10.9 Unspecified abdominal pain
CPT/HCPCS: 96360; 96361; A9270; J7030

== ENCOUNTER 2021-03-03 23:00 | Emergency (ER) | payer MEDICARE, SELFPAY ==
--- NOTE | ~2021-03-03 | XR_ITS ---
EXAMINATION: XR abdomen/kub 1V DATE: 03/03/2021 23:41 INDICATION: Abdominal pain. TECHNIQUE: A supine view of the abdomen on 2 radiographs was obtained. COMPARISON: CT abdomen and pelvis 07/31/2020 FINDINGS: There are no dilated loops of bowel. Surgical clips in the right upper quadrant are likely from cholecystectomy. IMPRESSION: 1. Normal bowel gas pattern. Reviewed, dictated and finalized at location A.
[2021-03-03 23:20] VITALS: BP 180/71; PULSE 82; RESP 20; TEMP 36.4; O2SAT 99
--- NOTE | 2021-03-03 23:22 | ED.GENADULT ---
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 He has struggled with this waxing and waning severe abdominal pain for a while but it has become much worse over the last couple days. He has not had a BM today but has also ate very little. No N/V, fevers or chills reported. Related Data Home Medications Medication Instructions Recorded Confirmed oxycodone 15 mg tablet,extended 15 mg PO BID tablet 01/28/21 release,12 hr oxycodone-acetaminophen 10 mg-325 1 tablet PO Q8H PRN 01/28/21 mg tablet atorvastatin 40 mg PO DAILY 03/04/21 Allergies Allergy/AdvReac Type Severity Reaction Status Date / Time No Known Allergies Allergy Verified 01/28/21 13:14 Review of Systems Constitutional: Constitutional: Reports no additional constitutional complaints, Denies chills and Denies fever(s) Eyes: Eyes: Reports no additional eye complaints ENT: Reports system reviewed and no additional complaints, except as documented Cardiovascular: Cardiovascular: Reports no additional cardiovascular complaints Respiratory: Respiratory: Reports no additional respiratory complaints Gastrointestinal: Gastrointestinal: Reports as per HPI Genitourinary: Genitourinary: Reports no additional male genitourinary complaints Musculoskeletal: Musculoskeletal: Reports no additional musculoskeletal complaints Integumentary/Breasts: Skin/Breast: Reports system reviewed and no additional complaints, except as docu Neurologic: Reports system reviewed and no additional complaints, except as documented Psychiatric: Psychiatric: Reports no additional psychiatric complaints Endocrine: Endocrine: Reports no additional endocrine complaints Hematologic/Lymphatic: Hematologic/Lymphatic: Reports no additional hematologic/lymphatic complaints Allergic/Immunologic: Allergic/Immunologic: Reports no additional allergic/immunologic complaints [facility] Past Medical History Medical History Avascular necrosis of bone of hip Cancer of ampulla of Vater Chronic low back pain Cigarette nicotine dependence DM type 2 with diabetic peripheral neuropathy DMII (diabetes mellitus, type 2) HLD (hyperlipidemia) HTN (hypertension) Surgical History Surgical History H/O hernia repair History of cholecystectomy Intestinal bypass present Whipple procedure Family History Family History Other Diabetes mellitus Family history of arthritis Social History Social History Smoking packs per day: 1 Smoking cigarettes per day: 20.0 Years smoked: 40 Smoking pack-years: 40.00 Smoking status: Current every day smoker Tobacco type: cigarettes Alcohol intake: never Exam Const: General: alert; No confusion Orientation/consciousness: patient oriented x3 Limitations: No altered mental status Other: In mild distress holding his abdomen HENMT: Head: normal to inspection Mouth: Yes Normal oral and palatal mucosa present Eyes: Conjunctivae: conjunctivae normal Pupils: Equal, round and reactive pupils present Neck: Neck: normal visual inspection Chest: Chest palpation & inspection: normal inspection of the chest Resp: Effort & Inspection: normal respiratory effort, not labored and not tachypneic Cardio: Rate: regular rate GI: Inspection: non-distended GI Palp: Yes Soft to palpation, Yes Tenderness to palpation present (GI) (diffus
[2021-03-03 23:23] VITALS: BP 180/71; PULSE 82; RESP 20; TEMP 36.7; O2SAT 99
[2021-03-03 23:38] LABS: Basophils Absolute Auto 0.03 K/mm3 (0.00-0.10); Basophils Percent Auto 0.2 % (0.0-1.0); Eosinophils Absolute Auto 0.09 K/mm3 (0.02-0.50); Eosinophils Percent Auto 0.7 % (1.0-6.0); Hematocrit 45.9 % (40.0-54.0); Hemoglobin 14.9 g/dL (14.0-18.0); Immature Granulocyte Absolute 0.04 K/mm3 (0.00-0.00); Immature Granulocyte Percent A 0.3 % (0.0-0.0); Lymphocytes Absolute Auto 2.65 K/mm3 (1.10-4.50); Lymphocytes Percent Auto 21.5 % (18.0-42.0); Mean Corpuscular HGB Conc 32.5 g/dL (32.0-36.0); Mean Corpuscular Hemoglobin 27.7 pg (27.0-31.0); Mean Corpuscular Volume 85.5 fL (78.0-102.0); Mean Platelet Volume 10.4 fl (8.7-11.0); Monocytes Absolute Auto 0.66 K/mm3 (0.10-0.90); Monocytes Percent Auto 5.4 % (2.0-11.0); Neutrophils Absolute Auto 8.9 K/mm3 (1.7-7.2); Neutrophils Percent Auto 71.9 % (50.0-70.0); Platelet Count Result 292 K/mm3 (150-420); Red Blood Count 5.37 M/mm3 (4.70-6.10); Red Cell Distribution Width 12.1 % (11.6-14.4); White Blood Count 12.3 K/mm3 (4.8-10.8)
[2021-03-03] MEDS: DICYCLOMINE HCL 10 MG CAPSULE 20 MG PO (23:40)
[2021-03-03] MEDS: SODIUM CHLORIDE 0.9% IV 1,000 ML 999 ML IV CONT (23:50)
[2021-03-03 23:52] LABS: Alanine Aminotransferase 31 U/L (16-63); Albumin Level 3.3 g/dL (3.4-5.0); Alkaline Phosphatase 201 U/L (46-116); Anion Gap 11 mmol/L (8-16); Aspartate Amino Transferase 19 U/L (15-37); Bilirubin,Total 0.4 mg/dL (0.00-1.00); Blood Urea Nitrogen 15 mg/dL (7-18); Calcium 8.8 mg/dL (8.5-10.1); Carbon Dioxide 24 mmol/L (21-32); Chloride 99 mmol/L (98-108); Estimated CRCL calculation 71 ml/min; Estimated Glomerular Filt Rate > 60; Glucose 277 mg/dL (70-99); Lipase 156 U/L (73-393); Osmolality Calculated 288 mOsm/kg (285-295); Potassium 3.8 mmol/L (3.5-5.1); Sodium 134 mmol/L (136-145); Total Protein 6.8 g/dL (6.4-8.2)
[2021-03-03 23:57] LABS: Lactic Acid Reflex 2.1 mmol/L (0.4-2.0)
[2021-03-04 00:11] LABS: Add Urine Microscopic? YES; Appearance Urine Clear (Clear); Bilirubin Urine Negative (Negative); Blood Urine Negative (Negative); Color Urine Yellow (Yellow); Glucose Urine UA 3+ (Negative); Ketones Urine Negative (Negative); Leukocyte Esterase Ur Negative (Negative); Nitrate Urine Negative (Negative); Protein Urine Negative (Negative); Urobilinogen Urine 0.2 mg/dL (0.2-1.0)
[2021-03-04 00:19] LABS: RBC Urine None seen /hpf (0-2); Squamous Epithelial Cell Urine None seen /hpf (Few); WBC Urine None seen /hpf (0-3)
[2021-03-04 00:32] VITALS: BP 141/79; PULSE 79; RESP 20; TEMP 36.9; O2SAT 97
[2021-03-04 02:35] LABS: Reflex Lactic Acid Yes or No Add Lactic
== END 2021-03-04 00:20 | disposition home or self-care (01) ==
PROVIDERS: Emergency Provider Family Medicine; PCP Family Medicine
DX: K59.03 Drug induced constipation (principal); T40.2X5A Adverse effect of other opioids, initial encounter
CPT/HCPCS: 36415; 74018; 80053; 81001; 83605; 83690; 85025; 99282; 99283; A9270; J7030

== ENCOUNTER 2021-05-10 16:38 | Outpatient (CLI) | payer MEDICARE, SELFPAY ==
[2021-05-10 17:38] LABS: SARS-CoV-2 RNA PCR Negative (Negative)
== END 2021-05-10 16:39 | disposition home or self-care (01) ==
LOC: CHSLAB 16:40
PROVIDERS: PCP Family Medicine; Visit Provider Surgery
DX: Z01.818 Encounter for other preprocedural examination (principal); Z20.822 Contact with and (suspected) exposure to COVID-19
CPT/HCPCS: C9803; U0003; U0005